=== PATIENT | female | born 1965 | race Caucasian/White ===

== ENCOUNTER 2018-06-24 10:23 | Emergency (ER) | payer BC ==
[2018-06-24] MEDS ORDERED: Ketorolac 60 MG/2 ML SDV IM ONE (10:55)
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
== END 2018-06-24 11:30 | disposition home or self-care (01) ==
LOC: CC.ED 10:23
DX: M25.561 Pain in right knee (principal)
CPT/HCPCS: 73562-RT; 96374; 99283; J1885

== ENCOUNTER 2024-02-26 21:04 | Emergency (ER) | payer BC ==
[2024-02-26 21:26] VITALS: BP 148/87; PULSE 112
[2024-02-26] MEDS: methylPREDNISolone Sodium Succinate 40 MG/1 ML SDV IM ONE (21:41)
[2024-02-26] MEDS: Orphenadrine 60 MG/2 ML Inj IM ONE (21:41)
[2024-02-26] MEDS: Take Home: Cyclobenzaprine 10 MG Tab, 4 Tab Pack PO ONE (22:02)
== END 2024-02-26 22:12 | disposition home or self-care (01) ==
LOC: CC.ED 21:04 → SUPCPDRO 21:04 → MERGE 21:04 → CC.ED 22:12
DX: M54.16 Radiculopathy, lumbar region (principal); Z90.49 Acquired absence of other specified parts of digestive tract; Z79.899 Other long term (current) drug therapy
CPT/HCPCS: 96372; 99284; A9270-GY; J2360; J2919